=== PATIENT | male | born 1970 | race Caucasian/White ===

== ENCOUNTER 2024-06-20 07:23 | Day surgery (SDC) | payer BC, SELFPAY ==
[2024-06-20] VITALS (13 sets, daily range): BP systolic 136–173; BP diastolic 87–110; BMI 31.8
[2024-06-20] MEDS: NSS 318 ML IV (07:59)
[2024-06-20 08:00] LABS: Glucose - Point of Care 147 mg/dl (70-99)
[2024-06-20] MEDS: LOW STRENGTH ASPIRIN 81 MG PO (08:01)
[2024-06-20 09:20] LABS: ACT-LR - POC 329 Seconds (116-155)
[2024-06-20 09:40] LABS: ACT-LR - POC 332 Seconds (116-155)
[2024-06-20 09:58] LABS: ACT-LR - POC 239 Seconds (116-155)
--- NOTE | 2024-06-20 10:02 | ITS.CL.ANGIO ---
Guest Advisor - Angioplasty
Angioplasty
Procedure Report:
CARDIAC CATHETERIZATION REPORT
Date of Procedure: 06/20/2024
Referring: Marv Singh M.D., Ph.D.
INDICATION: Multiple syncopal episodes, nonsustained ventricular tachycardia on prior Zio patch, severely elevated coronary artery calcium score.
PROCEDURE:
1. Left heart catheterization
2. Coronary angiography.
3. Successful IFR of the LAD.
4. Successful IFR of the left circumflex.
5. Successful FFR of the LAD.
6. Successful PCI of the mid RCA.
ACCESS:
6 [place] right radial artery.
CATHETERS:
1. 5 [place] JR4.
2. 5 Alger[place] JL 3.5.
3. 6 [place] EBU 3.5 guiding catheter.
4. 6 [place] AL 0.75 guiding catheter.
HEMODYNAMIC DATA
Weight (kg): 106.1
AO (s/d/x, mmHg): 135/91/110
LV (s/x mmHg): 141/15
LEFT VENTRICULOGRAPHY: Not performed.
CORONARY ANGIOGRAPHY
Dominance: Right.
Left Main: Normal size, bifurcating vessel. There is no coronary artery disease.
LAD: Normal size vessel giving rise to 1 significant diagonal. There is a 70% lesion in the mid LAD. There are tandem 80% lesions in the middle third of the diagonal.
Ramus: Congenitally absent.
Circumflex: Normal size, nondominant vessel giving rise to 1 large marginal. The marginal subsequently divides into several daughter branches. There is a 40% lesion in the proximal circumflex, immediately proximal to the origin of the marginal.
RCA: Large size, dominant vessel. There is a 90% lesion in the distal aspect of the mid RCA. There is a 30% lesion in the origin of the RPDA accentuated by the tortuosity of the origin of the vessel.
INTERVENTION(S)
1. Successful IFR of the 70% mid LAD lesion, demonstrating borderline occlusive disease (IFR = 0.92).
2. Successful IFR of the 40% proximal circumflex lesion, demonstrating nonocclusive disease (IFR = 0.97).
3. Successful FFR of the 70% mid LAD lesion, demonstrating nonocclusive disease (FFR = 0.83).
4. Successful PCI of the 90% mid RCA lesion (Medtronic [place] 3.0 x 30 KEN, postdilated with a 3.0 NC balloon throughout and 3.5 NC balloon in the proximal margin) with reduction in stenosis to 0%, maintaining PANCHITO-3 flow.
Narrative:
The decision was made to perform physiologic testing on the 70% mid LAD lesion. The diagnostic catheter was removed over a wire and exchanged for a(n) 6 [place] EBU 3.5 guiding catheter. The guiding catheter was advanced into the ascending aorta and
seated in the left main coronary artery. Additional heparin was given to obtain an ACT greater than 250 seconds. An iFR wire was zeroed outside of the body, then inserted into the guiding sheath. The wire was advanced and the transducer was
normalized just outside of the guiding catheter tip. The wire was advanced into the mid LAD. Three iFR measurements were taken. The lesion was determined to be borderline occlusive (0.92).
We then turned our attention to the 40% left circumflex lesion. The IFR wire was withdrawn into the guide then redirected into the circumflex. After being renormalized, the wire was advanced into the obtuse marginal, beyond the 40% proximal
circumflex lesion. 3 iFR measurements were taken. The lesion was determined to be nonocclusive (0.97).
We then turned our attention back to the 70% mid LAD lesion. The Omni wire was redirected into the mid LAD after being rezeroed near the guide. After achieving steady state, adenosine was started per protocol for fractional flow reserve. After 2
minutes of infusion with maximum hyperemia, FFR was measured at 0.83. The adenosine was stopped and the lesion was determined to be nonocclusive.
The decision was made to proceed with percutaneous coronary intervention on the 90% mid RCA lesion. The 6 [place] EBU 3.5 guiding catheter was removed over a wire and a 6Fr AL 0.75 guiding catheter was advanced to the aortic root and seated in the
right coronary artery. Additional heparin was given and a Power Turn Flex wire was advanced into the distal RCA/RPL. The 90% mid RCA lesion was predilated with a 2.0 x 12 semi-compliant balloon to 12 arpit. The we had reasonable lesion expansion,
there was a degree of focal calcification observed and the decision was made to predilate more aggressively. The semicompliant balloon was withdrawn and a 3.0 x 15 noncompliant balloon was advanced. The lesion was dilated to 16 arpit with good
release. The noncompliant balloon was removed and a Medtronic [place] 3.0 x 30 drug-eluting stent was advanced. The stent was deployed at 12 atmospheres. The stent balloon was removed. The 3.0 x 15 noncompliant balloon was advanced into the
stent and the stent was postdilated to 16 atmospheres in the distal and midportion. The stent was postdilated to 18 arpit in the proximal portion. The 3.0 x 15 noncompliant balloon was removed and a 3.5 x 12 noncompliant balloon was advanced. The
proximal margin of the stent was postdilated to 16 arpit. Angiography was performed in orthogonal views, confirming good stent expansion and an excellent angiographic result. The coronary wire was withdrawn and the guide was disengaged from the
artery. The catheter was removed over a standard J-wire.
Closure Device: Vascular band.
Radiation (mGy): 1401.68
DAP (cm2.Gy): 81.0087
Fluoroscopy time (minutes): 15.8
Sedation time (minutes): 76
CONCLUSIONS
1. Right dominant circulation with a nonocclusive 70% mid LAD lesion (IFR = 0.92, FFR = 0.83), tandem 80% lesions in the middle third of the diagonal, and nonocclusive 40% proximal circumflex lesion (IFR = 0.97) and a 90% lesion in the distal
aspect of the mid RCA status post successful PCI (Medtronic [place] 3.0 x 30 KEN, postdilated with a 3.0 NC balloon throughout and a 3.5 NC balloon in the proximal margin) with reduction in stenosis to 0%, maintaining PANCHITO-3 flow.
2. Top normal filling pressures (LVEDP = 15 mmHg at 106.1 kg).
3. Multiple episodes of syncope.
4. Nonsustained ventricular tachycardia on Zio patch.
RECOMMENDATIONS:
1. Expectant management after cardiac catheterization via right radial approach.
2. Limited weight bearing on the right wrist for one week.
3. Dual antiplatelet therapy with aspirin and clopidogrel for at least 12 months, followed by aspirin indefinitely.
4. Initiation of beta-blockade for arrhythmia suppression.
5. Aggressive secondary prevention with high-dose, high potency statin.
6. Guideline directed medical therapy as hemodynamics will tolerate.
7. The patient may benefit from long-term arrhythmia monitoring such as an implantable loop recorder.
8. Correction of the coronary artery disease may not resolve or improve his potential arrhythmia.
Copy to: Marv Singh M.D., Ph.D.
Sarabjit Parker DO, FACC, FACP
[2024-06-20 10:28] LABS: Glucose - Point of Care 120 mg/dl (70-99)
[2024-06-20] MEDS: NSS 1000 IV (10:37)
--- NOTE | 2024-06-20 14:27 | W.PN.UPDATE ---
Update Note
Progress Note Update
pt seen post RCA PCI. Right radial cath site without ht/bleeding, non tender. OOB ambulating. Post EKG NSR 80s, no acute changes. Pt understands importance of uninterrupted DAPT w/asa, plavix. Increase crestor to 20mg/daily, continue other meds as
before. Cardiac rehab consulted. Followup at [facility] as scheduled. Home today if cath site/tele remain stable.
== END 2024-06-20 14:58 | disposition home or self-care (01) ==
LOC: CATH 07:23
PROVIDERS: ATTENDING PHYSICIAN Internal Medicine Cardiovascular Disease; FAMILY PHYSICIAN Nurse Practitioner Family; OTHER PHYSICIAN Internal Medicine
DX: I25.10 Atherosclerotic heart disease of native coronary artery without angina pectoris (principal); R55 Syncope and collapse; I47.20 Ventricular tachycardia, unspecified; Z79.02 Long term (current) use of antithrombotics/antiplatelets; Z79.82 Long term (current) use of aspirin
CPT/HCPCS: 93799; 82962; 85347; 93005; 93458; 93571; C1725; C1769; C1874; C1887; C1894; C9600; J0153; Q9967

== ENCOUNTER 2024-08-27 15:30 | Outpatient (RCR) | payer BC, SELFPAY | END 2024-08-27 23:59 | disposition home or self-care (01) | LOC: CRHB 15:30 | PROVIDERS: ATTENDING PHYSICIAN Internal Medicine | DX: I25.10 Atherosclerotic heart disease of native coronary artery without angina pectoris (principal); Z95.5 Presence of coronary angioplasty implant and graft | CPT/HCPCS: 93798 ==

== ENCOUNTER 2024-10-02 06:36 | Day surgery (SDC) | payer BC, SELFPAY ==
--- NOTE | 2024-10-02 11:48 | ITS.CL.IMPLP ---
Private Client Advisor - Implant Loop
Implant Loop
Procedure Report:
Procedure: Insertion of Loop Recorder.�
Date of the procedure: 10/02/24
Procedure Physician: Hermilo Hernandez MD [facility]
Indication: Ventricular tachycardia and syncope
Description of the procedure:
Patient was brought to the holding area after informed consent was obtained from the patient. The time out was performed immediately before the procedure.
The left parasternal chest area was prepped and draped in sterile fashion with chlorhexidine prep x 3 times. Lidocaine 1% was injected subcutaneously for local anesthesia. The loop recorder was tunneled and then injected into the subcutaneous
tissue. The tunneling tool was removed leaving the loop recorder in place. The dermis was closed with 4-o monocryl suture followed by steristrips and a pressure Tegaderm dressing was placed. There were no immediate complications.
Post procedure, the device was interrogated and showed good detectable P and R waves.
There were no immediate complications.
Device:
LINQII; Model: [id number]; Serial #:[id number]
R wave amplitude: 0.3 mV
Final Programming:
��������������� Tachycardia Detection: >182 bpm for 16 beats
��������������� Bradycardia Detection: 30 bpm for 12 beats, Asystole for 5 seconds.
��������������� Atrial fibrillation detection: On with > 10 min duration
Conclusion:
Successful insertion of loop recorder.
Recommendation:
Routine post-insert loop care.
--- NOTE | 2024-10-02 13:00 | PTCARENOTE ---
Spouse of patient called laborer operator stating the dressing of her is saturated and dripping down his chest. WAREHOUSE STOCK CLERK notified and aware. Advised patient to come back to laborer operator. Patient arrived back to laborer operator into room 1. aware. Manual
pressure held by ADAN Anaya for 10 minutes. Site redressed until seen by Dr. David MD.
1155-MD at bedside. Site assessed. Stitch placed by MD David. Site dressed with 4x4 and tegaderm. Patient discharged home with .
== END 2024-10-02 08:02 | disposition home or self-care (01) ==
LOC: CATH 06:36
PROVIDERS: ATTENDING PHYSICIAN Internal Medicine Cardiovascular Disease; FAMILY PHYSICIAN Nurse Practitioner Family; OTHER PHYSICIAN Internal Medicine
DX: Z09 Encounter for follow-up examination after completed treatment for conditions other than malignant neoplasm (principal); I25.10 Atherosclerotic heart disease of native coronary artery without angina pectoris; Z79.82 Long term (current) use of aspirin; E11.9 Type 2 diabetes mellitus without complications; I47.20 Ventricular tachycardia, unspecified; R55 Syncope and collapse
CPT/HCPCS: 33285; C1764